=== PATIENT | female | born 1980 | race Two or more races ===

== ENCOUNTER 2021-05-27 04:55 | Inpatient (IN) | payer MEDICAID ==
[~2021-05-27] VITALS: Ht 160 cm; Wt 68.0 kg
[2021-05-27] MEDS ORDERED: OXYTOCIN 10 UNITS/ML 1ML ONE (05:00)
[2021-05-27] MEDS ORDERED: DEXT 5%/LR + PITOCIN 20UNITS/L 1,000 ML IV ONE (06:27)
[2021-05-27] MEDS ORDERED: MISOPROSTOL 200MCG TABLET VG SCH (07:45)
[2021-05-27] MEDS ORDERED: METHYLERGONOVINE MALEATE 0.2 MG/ML IM PRN (07:45)
[2021-05-27] MEDS ORDERED: CARBOPROST TROMETHAMINE 250 MCG/ML AMPUL IM PRN (07:45)
[2021-05-27] MEDS ORDERED: IBUPROFEN 400MG TABLET PO PRN (08:00)
[2021-05-27] MEDS ORDERED: RHO(D) IMMUNE GLOBULIN 300 MCG/SYR IM PRN (08:00)
[2021-05-27] MEDS ORDERED: IBUPROFEN 800MG TABLET PO PRN (08:00)
[2021-05-27] MEDS ORDERED: DIPHENHYDRAMINE 25MG CAPSULE PO PRN (08:00)
[2021-05-27] MEDS ORDERED: LANOLIN OINT 7GM TUBE TOP PRN (08:00)
[2021-05-27 08:40] LABS: CLARITY URINE CLEAR (CLEAR); COLOR URINE YELLOW (YELLOW); KETONES URINE 3+ (NEGATIVE); LEUKOCYTE ESTERASE URINE TRACE (NEGATIVE); NITRITE URINE NEGATIVE (NEGATIVE); OCCULT BLOOD URINE TRACE (NEGATIVE); PROTEIN URINE NEGATIVE (NEGATIVE); SPECIFIC GRAVITY URINE 1.021 (1.005-1.030)
[2021-05-27 09:00] VITALS: BP 91/55
[2021-05-27 09:18] LABS: BASOPHILS % 0.2 % (0.0-2.0); EOSINOPHILS % 0.1 % (0.0-5.0); HEMATOCRIT. 29.3 % (36.0-48.0); HEMOGLOBIN. 9.8 g/dL (12.0-16.0); LYMPHOCYTES % 15.9 % (20.0-50.0); MEAN CORPUSCULAR HEMOGLOBIN 32.5 pg (28.0-32.0); MEAN CORPUSCULAR VOLUME 97.5 fL (81.0-99.0); MEAN PLATELET VOLUME 8.9 fl (7.4-10.4); MONOCYTES % 4.4 % (2.0-8.0); NEUTROPHILS % 79.4 % (40.0-76.0); PLATELET 311 x1000/uL (130-400); RED BLOOD CELL COUNT 3.01 mill/uL (4.2-5.4); RED CELL DISTRIBUTION WIDTH 15.2 % (11.6-14.6)
[2021-05-27 09:19] LABS: *BARBITURATES SCREEN URINE NEGATIVE (NEGATIVE); *BENZODIAZEPINES SCREEN URINE NEGATIVE (NEGATIVE); *COCAINE SCREEN URINE NEGATIVE (NEGATIVE)
[2021-05-27 09:20] LABS: CANNABINOID URINE SCREEN NEGATIVE (NEGATIVE); METHADONE URINE SCREEN NEGATIVE (NEGATIVE); OPIATES URINE SCREEN NEGATIVE (NEGATIVE); PHENCYCLIDINE URINE SCREEN NEGATIVE (NEGATIVE)
[2021-05-27 09:23] LABS: CHLORIDE 107 mEq/L (98-107)
[2021-05-27 09:32] LABS: *AMPHETAMINES SCREEN URINE PRESUMTIVE POSITIVE (NEGATIVE)
[2021-05-27 09:32] LABS: PARTIAL THROMBOPLASTIN TIME 28.9 sec (23.4-31.0); PROTHROMBIN TIME 10.5 sec (9.6-11.0)
[2021-05-27 10:00] LABS: HEPATITIS B SURFACE ANTIGEN NEGATIVE
[2021-05-27] MEDS: PRENATAL VIT/FE FUMARATE/FA TABLET PO SCH (10:00)
[2021-05-27] MEDS ORDERED: PENICILLIN G BENZATHINE 2,400,000 UNITS/4ML SYR IM NR (12:00)
[2021-05-27 16:30] VITALS: BP 100/56
[2021-05-27 20:00] VITALS: BP 119/77
[2021-05-28 04:30] VITALS: BP 96/57
[2021-05-28 07:30] VITALS: BP 94/49
[2021-05-28 07:35] LABS: BASOPHILS % 0.3 % (0.0-2.0); EOSINOPHILS % 0.6 % (0.0-5.0); HEMATOCRIT. 24.9 % (36.0-48.0); HEMOGLOBIN. 8.4 g/dL (12.0-16.0); LYMPHOCYTES % 37.3 % (20.0-50.0); MEAN CORPUSCULAR HEMOGLOBIN 32.5 pg (28.0-32.0); MEAN CORPUSCULAR VOLUME 96.9 fL (81.0-99.0); MEAN PLATELET VOLUME 9.6 fl (7.4-10.4); MONOCYTES % 6.1 % (2.0-8.0); NEUTROPHILS % 55.7 % (40.0-76.0); PLATELET 260 x1000/uL (130-400); RED BLOOD CELL COUNT 2.57 mill/uL (4.2-5.4); RED CELL DISTRIBUTION WIDTH 15.8 % (11.6-14.6)
[2021-05-28 16:30] VITALS: BP 103/72
[2021-05-28 21:05] VITALS: BP 99/58
[2021-05-29 04:40] VITALS: BP 90/50
[2021-05-29] MEDS ORDERED: IBUP-2030 PO (07:19)
[2021-05-29] MEDS ORDERED: FERR325T6 MT (07:19)
[2021-05-29] MEDS ORDERED: MULT-1241 PO (07:19)
[2021-05-29 07:30] VITALS: BP 95/64
[2021-05-29] MEDS: PRENATAL VIT/FE FUMARATE/FA TABLET PO SCH (08:42)
[2021-06-05 04:11] LABS: AMPHETAMINE CONF URINE Positive (.)
== END 2021-05-29 11:50 | disposition home or self-care (01) | DRG 560 ==
LOC: 8 EST LDRP 04:55 → EDBD 04:55 → 8EST 08:50
PROVIDERS: ADMIT Obstetrics & Gynecology; ATTEND Obstetrics & Gynecology
PROC: 10E0XZZ Delivery of Products of Conception, External Approach (ICD-10-PCS; principal; 2021-05-27)
DX: O72.0 Third-stage hemorrhage (principal); A53.0 Latent syphilis, unspecified as early or late; F16.10 Hallucinogen abuse, uncomplicated; O99.325 Drug use complicating the puerperium; O98.13 Syphilis complicating the puerperium; O90.81 Anemia of the puerperium; F15.10 Other stimulant abuse, uncomplicated; Z59.0 Homelessness; Z85.41 Personal history of malignant neoplasm of cervix uteri
CPT/HCPCS: 36415; 80053; 80305; 80359; 81003; 85025; 86592; 86593; 86703; 86762; 86780; 86850; 86900; 87340; 87426; 99281; J0561; J2590